=== PATIENT | female | born 1950 | race Caucasian/White ===

== ENCOUNTER 2016-11-05 07:24 | Day surgery (SDC) | payer MEDICARE, MEDICAID ==
[~2016-11-05] VITALS: Ht 157.5 cm; Wt 110.0 kg
[~2016-11-05 07:24] MED LIST: CARV6.252 PO; GABA100C4 PO; GABA300C3 PO; HYDR-2823 PO; NITR0.1D TD; NOVONP2 SQ; NU-IRON PO; SIMV40TA PO; VITA500S3 SL; ZITH250T PO; [UNRECOGNIZED DRUG - CODE] RIGHT EAR
[2016-11-05 07:50] VITALS: BP 157/83; PULSE 78; RESP 20; TEMP 98.1; O2SAT 94
[2016-11-05] MEDS ORDERED: ERGO1CAP10 PO (08:14)
[2016-11-05] MEDS ORDERED: INSU100V2 SQ (08:14)
[2016-11-05] MEDS ORDERED: VITA500T49 PO (08:14)
[2016-11-05] MEDS ORDERED: ETHA5TAB PO (08:14)
[2016-11-05] MEDS ORDERED: INSU100V3 SQ (08:14)
[2016-11-05] MEDS ORDERED: TRAM50TA PO (08:14)
[2016-11-05] MEDS ORDERED: CHOL50008 PO (08:14)
[2016-11-05] MEDS ORDERED: ISOS30TA15 (08:14)
[2016-11-05] MEDS ORDERED: AMLO5TAB2 PO (08:14)
[2016-11-05] MEDS ORDERED: STOO100T (08:14)
[2016-11-05] MEDS ORDERED: CARV12.52 PO (08:14)
[2016-11-05] MEDS ORDERED: GABA400C5 PO (08:14)
[2016-11-05] MEDS ORDERED: CALC0.5C6 PO (08:14)
[2016-11-05] MEDS ORDERED: SODIUM CHLORIDE 0.9% 1000 ML IV SCH (08:30)
[2016-11-05 08:37] LABS: PROTHROMBIN TIME - PATIENT 10.6 SEC (9.8-11.6)
[2016-11-05 10:10] VITALS: BP 188/84; PULSE 72; RESP 20; TEMP 97.9; O2SAT 94
[2016-11-05 10:20] VITALS: BP 172/80; PULSE 72; RESP 18; O2SAT 95
--- NOTE | 2016-11-05 10:20 | PD.RAD ---
Post Procedure Progress Note Pre Procedure Diagnosis: (1) ESRD (end stage renal disease) (2) Collateral circulation (venous) Post Procedure Diagnosis: (1) ESRD (end stage renal disease) (2) Collateral circulation (venous) Procedure Date: November 05, 2016 Supervising Radiologist: Benedicto Garibay Proceduralist/Assist: Joan Sewell, RT(R), June Duong RT(R)() Anesthesia: Local Plan of Activity Patient to Unit: ROPU Patient Condition: Good See PACS Report for procedural detail/treatment Vascular-Venous Procedure Procedure 1 Procedure Site: Left Arm Procedure(s): Venogram Access Access Site(s): Left Basilic Vein Closure Site(s): Left manual pressure Findings: Brachiobasilic patent. Left subclavian and SVC occluded Benedicto Garibay MD November 05, 2016 10:20
[2016-11-05 10:40] VITALS: PULSE 76; RESP 18; O2SAT 96
--- NOTE | 2016-11-05 10:59 | RADRPT ---
EXAM DATE/TIME: 11/05/2016 09:27 [facility] COMPARISON: No previous studies available for comparison. INDICATIONS : Patient with chronic kidney disease in need of venogram for AV fistula placement. MEDICAL HISTORY : Stage IV CKD, Diabetic, DJD, Chronic lymphedema, Anemia, Peripheral neuropathy, Breast cancer, HLD, C HF, HTN, Asthma SURGICAL HISTORY : Right mastectomy, Left knee arthroplasty, Tonsillectomy, Ureterolithotomy ENCOUNTER: Initial ACUITY: >1 year PAIN SCORE: 0/10 FLUORO TIME: 2.6 minutes IMAGE SERIES: 6 ACCESS SITE: Left arm PROCEDURE : 1. Ultrasound-guided venipuncture. 2. Venogram. The risks, benefits and alternatives to the procedure were explained and verbal and written consent w as obtained. The site was prepped in sterile fashion. Full sterile technique was used, including ca p, mask, sterile gloves and gown and a large sterile sheet. Hand hygiene and 2% chlorhexidine and/or betadine/alcohol prep was utilized per protocol for cutaneous antisepsis. The skin and subcutaneous tissues were infiltrated with local anesthetic solution. With ultrasound guidance the selected vein was punctured and negative contrast was injected to demons trate the venous anatomy of the affected extremity(patient reports a severe allergy to iodinated cont rast). Brachiobasilic system is patent. However, the subclavian artery appears to be occluded near the junct ion of the brachiocephalic extensive mediastinal and transthyroidal collaterals reconstituting the ce ntral SVC. CONCLUSION: Uncomplicated venogram as above. 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 This report was verified electronically.
--- NOTE | 2016-11-05 17:07 | RADRPT ---
EXAM DATE/TIME: 11/05/2016 09:40 [facility] COMPARISON: No previous studies available for comparison. INDICATIONS : Patient with chronic kidney disease in need of venogram for AV fistula placement. MEDICAL HISTORY : Stage IV CKD, Diabetic, DJD, Chronic lymphedema, Anemia, Peripheral neuropathy, Breast cancer, HLD, C HF, HTN, Asthma SURGICAL HISTORY : Right mastectomy, Left knee arthroplasty, Tonsillectomy, Ureterolithotomy ENCOUNTER: Initial ACUITY: >1 year PAIN SCORE: 0/10 IMAGE SERIES: 0 ACCESS: Left brachial vein DEVICE(S): 1.) 3/4 Italian Dilator PROCEDURE : 1. Ultrasound guided venous access. The risks, benefits and alternatives to the procedure were explained and verbal and written consent w as obtained. The site was prepped in sterile fashion. Full sterile technique was used, including ca p, mask, sterile gloves and gown and a large sterile sheet. Hand hygiene and 2% chlorhexidine and/or betadine/alcohol prep was utilized per protocol for cutaneous antisepsis. The skin and subcutaneous tissues were infiltrated with local anesthetic solution. With ultrasound guidance the prescribed vein was punctured for venous access. A 4 Italian dilator was placed and was flushed and locked with heparin. The patient tolerated procedure well and there were n o complications. CONCLUSION: Uncomplicated ultrasound guided venous access. Catheter was placed to facilitate CO2 venography Benedicto Garibay MD on November 05, 2016 at 17:05 Board Certified Radiologist. This report was verified electronically.
== END 2016-11-05 11:05 | disposition home or self-care (01) ==
LOC: HRIP 07:24 → HROP 07:24
PROVIDERS: ATTEND Surgery Vascular Surgery
DX: I82.B22 Chronic embolism and thrombosis of left subclavian vein (principal); I12.9 Hypertensive chronic kidney disease with stage 1 through stage 4 chronic kidney disease, or unspecified chronic kidney disease; N18.4 Chronic kidney disease, stage 4 (severe); E78.5 Hyperlipidemia, unspecified; J45.909 Unspecified asthma, uncomplicated; I89.0 Lymphedema, not elsewhere classified; I50.9 Heart failure, unspecified; Z85.3 Personal history of malignant neoplasm of breast; G62.9 Polyneuropathy, unspecified; Z91.041 Radiographic dye allergy status
CPT/HCPCS: 36005; 36410; 75820; 76937; 85610; C1769; C1887